=== PATIENT | male | born 1950 | race Caucasian/White ===

== ENCOUNTER 2018-02-03 10:25 | Emergency (ER) | payer MEDICARE, OTHER ==
[~2018-02-03] VITALS: Ht 175.3 cm; Wt 73.5 kg
[~2018-02-03 10:25] MED LIST: ASPIRIN325 PO; ASPIRIN81 M2 PO; ATORVASTATIN CA40 MG PO; FLOMAX0.4 MG PO; GABAPENTIN 100100 MG PO; GLUCOPHAGE1000 MG PO; LEVEMIR SQ; LISINOPRIL10 MG PO; LISINOPRIL20 MG PO; NORVASC5 MG PO; NOVOLOG100 UNIT/1 SQ; NOVOLOG100 UNIT/1 SUBQ; SIMVASTATIN40 MG PO; TOUJEO SOL300 UNIT/1 SUBQ
[2018-02-03 10:35] VITALS: BP 185/90
[2018-02-03] MEDS ORDERED: ROBAXIN500 MG PO (10:48)
[2018-02-04] MEDS ORDERED: BASAGLAR K100 UNIT/1 SUBQ (10:40)
[2018-02-04] MEDS ORDERED: CYCLOBENZAPRINE10 MG PO (13:31)
[2018-02-04] MEDS ORDERED: SENNA-DOCUSATE1 EACH PO (13:31)
== END 2018-02-03 10:54 | disposition home or self-care (01) ==
LOC: M.ERS 10:25
DX: M54.32 Sciatica, left side (principal); I25.10 Atherosclerotic heart disease of native coronary artery without angina pectoris; E78.5 Hyperlipidemia, unspecified; I10 Essential (primary) hypertension; M19.90 Unspecified osteoarthritis, unspecified site

== ENCOUNTER 2018-02-04 02:18 | Observation (INO) | payer MEDICARE, OTHER ==
[2018-02-04] VITALS (7 sets, daily range): BP systolic 120–200; BP diastolic 68–103
[~2018-02-04] VITALS: Ht 175.3 cm; Wt 73.5 kg
[~2018-02-04 02:18] MED LIST changes: +ROBAXIN500 MG PO
[2018-02-04 02:45] LABS: URINE BILIRUBIN NEGATIVE (Negative); URINE BLOOD TR (Negative); URINE CLARITY CLEAR; URINE COLOR YELLOW; URINE GLUCOSE-RANDOM 3+ (Negative); URINE KETONES NEGATIVE (Negative); URINE LEUKOCYTES-REFLEX NEGATIVE (Negative); URINE NITRITE-REFLEX NEGATIVE (Negative); URINE PROTEIN 1+ (Negative); URINE UROBILINOGEN 0.2 E.U./dl (0.2-1.0)
[2018-02-04 02:52] LABS: ABSOLUTE BASOPHILS 0.1 thou/uL (0.0-0.2); ABSOLUTE EOSINOPHILS 0.2 thou/uL (0.0-0.7); ABSOLUTE LYMPHOCYTES 1.8 thou/uL (0.8-5.3); ABSOLUTE MONOCYTES 0.8 thou/uL (0.0-1.2); ABSOLUTE NEUTROPHILS 2.8 thou/uL (1.6-8.1); BASOPHILS 1.1 %; HEMOGLOBIN 12.6 gm/dL (14.0-18.0); LYMPHOCYTES 32.3 %; MCH 28.7 pg (26.0-34.0); MCHC 34.1 g/dL (28.0-37.0); MCV 84.2 fL (80.0-100.0); MONOCYTES 13.6 %; MPV 7.1 fl. (7.2-11.1); NUCLEATED RBCS 0 /100WBC; PLATELET COUNT* 316 thou/uL (150-400); RBC 4.39 mil/uL (4.50-6.00); RDW-CV 13.1 % (10.5-14.5); WBC 5.7 thou/uL (4.0-11.0)
[2018-02-04 03:07] LABS: CALCIUM 9.3 mg/dL (8.5-10.1); CREATININE 0.9 mg/dL (0.6-1.3)
[2018-02-04 03:11] LABS: ALBUMIN 3.7 g/dL (3.4-5.0); TOTAL BILIRUBIN 0.4 mg/dL (<0.1-1.0); TOTAL PROTEIN 7.5 g/dL (6.4-8.2)
--- NOTE | 2018-02-04 06:59 | NUR ---
PATIENT ADMITTED TO ROOM 107 FROM THE ER AT APPROXIMATELY 0600 THIS AM. VSS ON RA. PAIN CONTROLLED AT THIS TIME D/T PAIN MEDICATION BEING GIVEN IN THE ER. PATIENT ORIENTED TO ROOM AND POLICIES. FALL EDUCATION GIVEN AND FALL AGREEMENT SIGNED. PATIENT VERBALIZED UNDERSTAND. ASSESSMENT CHARTED. IV IN LEFT AC-NS @ 120ML/HR. PATIENT INSTRUCTED TO USE CALL LIGHT WHEN NEEDING ASSISTANCE. HOURLY ROUNDS MADE. WILL CONTINUE WITH PLAN OF CARE AND NURSING TO MONITOR.
[2018-02-04] MEDS ORDERED: BASAGLAR K100 UNIT/1 SUBQ (10:40)
[2018-02-04] MEDS ORDERED: SENNA-DOCUSATE1 EACH PO (13:31)
[2018-02-04] MEDS ORDERED: CYCLOBENZAPRINE10 MG PO (13:31)
--- NOTE | 2018-02-04 19:22 | NUR ---
PATIENT LEFT UNIT AT 1900. ALERT AND ORIENTED X4. UP AD KWAME IN ROOM. IV DC'D. PAIN BEING MANAGED WITH PO PAIN MEDICATION. DENIES NAUESA. ALL PERSONAL ITEMS LEFT WITH PATIENT. DISCHARGE INSTRUCTIONS, PRESCRIPTIONS, AND NEW MEDICATION INFORMATION SENT WITH PATIENT. VSS ON ROOM AIR. HOURLY ROUNDS HAVE BEEN MAINTAINED THROUGHOUT SHIFT. LEFT WITH VIA CAR.
== END 2018-02-04 19:00 | disposition home or self-care (01) ==
LOC: M.ERS 02:18 → M.ORTHSURG 05:14 → M.TBA-ER 05:14 → M.ORTHSURG 05:14
PROVIDERS: Emergency Medicine; ADMIT Internal Medicine
DX: S39.011A Strain of muscle, fascia and tendon of abdomen, initial encounter (principal); K40.90 Unilateral inguinal hernia, without obstruction or gangrene, not specified as recurrent; I25.10 Atherosclerotic heart disease of native coronary artery without angina pectoris; E11.9 Type 2 diabetes mellitus without complications; M54.32 Sciatica, left side; K59.09 Other constipation; Z79.4 Long term (current) use of insulin; I10 Essential (primary) hypertension; E78.5 Hyperlipidemia, unspecified; Z87.891 Personal history of nicotine dependence; C43.9 Malignant melanoma of skin, unspecified; X58.XXXA Exposure to other specified factors, initial encounter; Y93.89 Activity, other specified; Y92.89 Other specified places as the place of occurrence of the external cause

== ENCOUNTER → 2018-02-16 | Outpatient (CLI) | payer MEDICARE, OTHER ==
[~2018-02-16] MED LIST changes: +BASAGLAR K100 UNIT/1 SUBQ; +CYCLOBENZAPRINE10 MG PO; +SENNA-DOCUSATE1 EACH PO
== END ==
LOC: M.RAD 11:33
DX: M54.5 Low back pain (principal)

== ENCOUNTER → 2018-03-22 | Outpatient (CLI) | payer MEDICARE, OTHER | LOC: M.MRI 10:27 | DX: M51.36 Other intervertebral disc degeneration, lumbar region (principal); M51.26 Other intervertebral disc displacement, lumbar region; M12.88 Other specific arthropathies, not elsewhere classified, other specified site; M48.062 Spinal stenosis, lumbar region with neurogenic claudication; N28.1 Cyst of kidney, acquired ==